=== PATIENT | female | born 1965 | race African-American/Black ===

== ENCOUNTER 2016-12-01 10:16 | Emergency (ER) | payer OTHER, MEDICAID ==
[~2016-12-01] VITALS: Ht 167.6 cm; Wt 49.9 kg
[2016-12-01 12:58] VITALS: BP 125/93
[2016-12-01] MEDS ORDERED: TETANUS-DIPTH-ACEL PERTUSSIS 0.5ML SYRG IM ONE (13:15)
== END 2016-12-01 13:36 | disposition home or self-care (01) ==
LOC: ER 10:24
DX: S61.256A Open bite of right little finger without damage to nail, initial encounter (principal); I10 Essential (primary) hypertension; W53.11XA Bitten by rat, initial encounter; Y93.89 Activity, other specified; Y99.8 Other external cause status; Y92.89 Other specified places as the place of occurrence of the external cause
CPT/HCPCS: 90471; 90715

== ENCOUNTER → 2020-06-16 | Emergency (ER) | payer OTHER, MEDICAID ==
[~2020-06-16] VITALS: Ht 167.6 cm; Wt 79.4 kg
[~2020-06-16] MED LIST: POTASSIUM EFFERVESENT TAB 25 MEQ PO ONE; SODIUM CHLORIDE 0.9% 1,000 ML IV ONE
[2020-06-16 12:16] LABS: Basophils # (auto) 0.1 10 ^3/uL (0-0.2); Basophils % (auto) 0.8 % (0.0-2.0); Eosinophils # (auto) 0 10 ^3/uL (0-0.8); Hematocrit 39.7 % (36.0-46.0); Hemoglobin 13.1 g/dL (12.2-16.2); Lymphocytes # (auto) 2.7 10 ^3/uL (0.4-5.4); Lymphocytes % (auto) 35.3 % (10.0-50.0); Mean Corpuscular Hemoglobin 29.7 pg (28.0-32.0); Monocytes # (auto) 0.8 10 ^3/uL (0-1.3); Monocytes % (auto) 10.7 % (0.0-12.0); Neutrophils % (auto) 53.2 % (37.0-80.0); Nucleated Red Blood Cells % 0.1 %; Platelet Count (auto) 182 10^3/uL (140-450); Red Blood Cells 4.41 10^6/uL (4.0-5.20); Red Cell Distribution Width 15.1 % (11.8-14.3); White Blood Cell 7.5 10^3/uL (4.4-10.8)
[2020-06-16 12:33] LABS: Albumin 3.7 g/dL (3.4-5.0); Anion Gap 6 (5-15); Blood Alcohol < 3.0 mg/dL (0-5); Blood Urea Nitrogen 18 mg/dL (7-18); Calcium 8.7 mg/dL (8.5-10.1); Carbon Dioxide 24 mmol/L (21-32); Chloride 111 mmol/L (98-107); Glucose 71 mg/dL (74-106); Potassium 3.1 mmol/L (3.5-5.1); Sodium 141 mmol/L (136-145)
[2020-06-16 12:34] LABS: Salicylate < 1.7 mg/dL (2.8-20.0)
[2020-06-16 12:38] LABS: Alanine Aminotransferase 21 U/L (13-56); Alkaline Phosphatase 86 U/L (45-117); Aspartate Aminotransferase 20 U/L (15-37); BUN/Creatinine Ratio 14.8; Bilirubin, Total 0.7 mg/dL (0.2-1.0); GFR African American 59 mL/min; GFR Non-African American 49 mL/min; Total Protein 7.6 g/dL (6.4-8.2)
[2020-06-16 12:42] LABS: Acetaminophen < 2.0 ug/mL (10-30)
[2020-06-16 16:59] VITALS: BP 130/90
== END | disposition home or self-care (01) ==
LOC: ER 09:51
DX: E87.6 Hypokalemia (principal); E86.0 Dehydration; F41.9 Anxiety disorder, unspecified
CPT/HCPCS: 36415; 71045; 80053; 80320; 80329; 84484; 85025; 96360

== ENCOUNTER 2023-07-12 16:34 | Emergency (ER) | payer OTHER ==
[~2023-07-12] VITALS: Ht 162.6 cm; Wt 72.7 kg
[2023-07-12 18:44] VITALS: BP 134/104; PULSE 73; RESP 16; TEMP 98.2; O2SAT 97
[2023-07-12] MEDS ORDERED: hydrOXYzine 25 MG TAB or CAP PO ONE (19:15)
== END 2023-07-12 19:39 | disposition home or self-care (01) ==
LOC: ER 16:34 → EDBD 16:34 → ER 19:39
DX: S09.90XA Unspecified injury of head, initial encounter (principal); F41.9 Anxiety disorder, unspecified; I10 Essential (primary) hypertension; F20.9 Schizophrenia, unspecified; W18.39XA Other fall on same level, initial encounter; Y93.89 Activity, other specified; Y92.89 Other specified places as the place of occurrence of the external cause; Y99.8 Other external cause status
CPT/HCPCS: 70450

== ENCOUNTER 2024-08-11 12:00 | Emergency (ER) | payer OTHER ==
[~2024-08-11] VITALS: Ht 167.6 cm; Wt 60.0 kg
[2024-08-11 13:56] VITALS: BP 120/91; PULSE 63; RESP 16; TEMP 98.3; O2SAT 100
[2024-08-11] MEDS ORDERED: IBUP1TAB4 PO (14:57)
== END 2024-08-11 14:16 | disposition home or self-care (01) ==
LOC: ER 12:00
DX: M25.561 Pain in right knee (principal); I10 Essential (primary) hypertension; F41.9 Anxiety disorder, unspecified; F20.9 Schizophrenia, unspecified